=== PATIENT | female | born 1990 | race Two or more races ===

== ENCOUNTER 2017-12-11 05:33 | Day surgery (SDC) | payer OTHER ==
[2017-12-11] MEDS ORDERED: BUPIVACAINE HCL 0.5 % INJ/PF 30 ML SDV ONE (07:11)
[2017-12-11] MEDS ORDERED: CEFAZOLIN 2 GM/D5W RTU 2 GM/50 ML RTUPB IV ONE (07:26)
[2017-12-11] MEDS ORDERED: FENTANYL CITRATE INJ/PF 250 MCG/5 ML AMPULE ONE (07:34)
[2017-12-11] MEDS ORDERED: ONDANSETRON HCL INJ/PF 4 MG/2 ML SDV ONE (07:34)
[2017-12-11] MEDS ORDERED: PROPOFOL INJ 200 MG/20 ML VIAL IV ONE (07:34)
[2017-12-11] MEDS ORDERED: DEXAMETHASONE SOD PHOSPHATE INJ 4 MG/1 ML VIAL ONE (07:34)
[2017-12-11] MEDS ORDERED: ACETAMINOPHEN 1,000 MG/100 ML RTUPB IV ONE (07:34)
[2017-12-11] MEDS ORDERED: HYDROMORPHONE HCL INJ/PF 2 MG/ML AMPULE ONE (07:34)
[2017-12-11] MEDS ORDERED: MIDAZOLAM 2 MG/2 ML INJ ONE (07:34)
[2017-12-11 07:43] LABS: HEMATOCRIT 39.7 % (36.0-47.0); HEMOGLOBIN 13.7 g/dL (12.0-15.5); MEAN CORPUSCULAR HEMOGLOBIN 31.2 pg (27.0-33.4); MEAN CORPUSCULAR HGB CONC 34.4 g/dL (32.0-36.0); MEAN CORPUSCULAR VOLUME 91 fl (80-97); PLATELET COUNT 285 10^3/uL (150-450); RED BLOOD COUNT 4.39 10^6/uL (3.72-5.28); RED CELL DISTRIBUTION WIDTH 12.8 % (11.5-14.0); WHITE BLOOD COUNT 10.1 10^3/uL (4.0-10.5)
[2017-12-11] MEDS ORDERED: SUCCINYLCHOLINE CHLORIDE INJ 200 MG/10 ML VIAL ONE (08:15)
[2017-12-11] MEDS ORDERED: FENTANYL CITRATE INJ/PF 100 MCG/2 ML AMPUL IV PRN ×3 (08:48)
[2017-12-11] MEDS ORDERED: MEPERIDINE HCL/PF INJ 25 MG/1 ML DISP.SYRIN IV PRN (08:48)
[2017-12-11] MEDS ORDERED: PROMETHAZINE HCL INJ 25 MG/1 ML VIAL IV PRN (08:48)
[2017-12-11] MEDS ORDERED: MORPHINE SULFATE 10 MG/ML INJ IV PRN (08:48)
[2017-12-11] MEDS ORDERED: DIPHENHYDRAMINE HCL 50 MG/ML VIAL IV PRN (08:48)
[2017-12-11] MEDS: FENTANYL CITRATE INJ/PF 100 MCG/2 ML AMPUL ONE ×2 (10:25→10:30)
[2017-12-11] MEDS ORDERED: MORPHINE SULFATE 10 MG/ML INJ ONE (10:35)
[2017-12-11] MEDS ORDERED: KETOROLAC TROMETHAMINE INJ/PF 30 MG/1 ML SDV ONE (10:35)
[2017-12-11] MEDS ORDERED: OXYCODONE-ACETAMINOPHEN 5-325 MG TABLET PO PRN (10:57)
[2017-12-11] MEDS ORDERED: LORAZEPAM INJ 2 MG/1 ML VIAL ONE (11:09)
[2017-12-11] MEDS ORDERED: ONDANSETRON HCL 8 MG TABLET PO PRN (11:24)
[2017-12-11] MEDS ORDERED: OXYCODONE-ACETAMINOPHEN 5-325 MG TABLET ONE (11:49)
--- NOTE | 2017-12-11 12:01 | OPERATIVE REPORT E ---
Operative Report NAME: GUILLERMO HSU : 1990 AGE: 27Y DATE OF SURGERY: 12/11/2017 ROOM: PREOPERATIVE DIAGNOSIS: Left wrist distal radioulnar joint instability. POSTOPERATIVE DIAGNOSIS: Left wrist distal radioulnar joint instability. PROCEDURES: 1. Left wrist distal radioulnar joint reconstruction. 2. Palmaris longus tendon graft separate incision. SURGEON: ISABELA COOK M.D. ANESTHESIA: General. BLOOD LOSS: Minimal. COMPLICATIONS: None. 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 Due to this pain, she is dependent on narcotic analgesics. DESCRIPTION OF PROCEDURE: Following the induction of a general anesthetic and administration of antibiotics, the patient was positioned supine on the operating room table. Bony prominences were padded. The tourniquet was placed proximally on the left arm, but not inflated. The left upper extremity was sterilely prepped with Chloraprep and draped in standard fashion. The arm was exsanguinated and tourniquet inflated to 100 mm by systolic pressure. At the beginning of the procedure, we harvested the palmaris longus tendon graft. A transverse incision was made on the volar aspect of the wrist. A sharp incision was performed through skin, blunt dissection for the subcutaneous tissue. The palmaris longus tendon was identified and was transected distally. A tendon harvester was placed over it and the tendon was harvested. When the harvester reached the musculotendinous junction, the tendon graft was then placed on the back table. The wound was irrigated and closed with nylon. An incision was made on the dorsoulnar aspect of the wrist. A sharp incision was performed through skin and blunt dissection through the subcutaneous tissue. The fifth dorsal extension compartment was opened and the EDQ tendon retracted. The DRUJ was opened in an L-shape flap. There was chronic instability of the DRUJ and the distal radial ulnar joint was completely dislocated. Bone holes were drilled using a cannulated 2.7 drill bit in the dorsal ulnar corner of the distal radius as well as through the fovea of the ulna. Both of these holes were opened with a curette. A second counter incision was made on the volar ulnar aspect of the wrist between the ulna neurovascular bundle and the flexor tendons. Tendon graft was placed from volar to dorsal using a Hewson suture passer through the radius. A mosquito clamp was then placed over the TFCC remnants dorsally to volarly and the graft was brought again dorsally so that both ends of the graft were in the dorsal aspect of the wound. Hewson suture passer was once again used as both of these limbs were pulled through the bone tunnel in the distal ulna. It was looped around the distal ulna and sutured together using a 4-0 FiberLoop suture. Due to the severe degree of instability, it was decided to reduce the distal radial ulnar joints and the DRUJ was pinned using a 0.62 Melissa wire from ulnar to radial *------* bicortically just in case of wire breakage. The wounds were irrigated. The arthrotomy in the distal ulnar joint was imbricated with a [id number] fashion using 4-0 FiberLoop. The subcutaneous tissue and skin dorsally were closed with 3-0 Monocryl and Steri-Strips were applied. Volarly, the subcutaneous tissue and skin were closed with 3-0 Monocryl and Steri-Strips were applied as well. In addition, during a dorsal exposure, due to previous trauma, the PIN nerve was identified. Therefore, a PIN neurectomy was performed in order to provide postoperative analgesia in the wrist. A pin ball was placed on the Melissa wire. A 0.25% Marcaine was injected in all wounds for postoperative analgesia. A bulky sterile dressing and long arm splint were applied. The patient tolerated the procedure well without complications and was brought to the recovery room in stable condition. DICTATING PHYSICIAN: ISABELA COOK M.D. [id number] PHY#: [id number] ID: [id number] JOB#: [id number] ACCT: [id number] cc:ISABELA COOK M.D. >
[2017-12-11 13:02] VITALS: BP 140/84
== END 2017-12-11 12:40 | disposition home or self-care (01) ==
LOC: OROUT 05:33
PROVIDERS: ATTEND Orthopaedic Surgery
DX: M25.332 Other instability, left wrist (principal); S63.01 Subluxation and dislocation of distal radioulnar joint; X58.XXXS Exposure to other specified factors, sequela; M24.542 Contracture, left hand; M24.522 Contracture, left elbow; J45.909 Unspecified asthma, uncomplicated; E66.9 Obesity, unspecified; Z79.51 Long term (current) use of inhaled steroids; Z68.41 Body mass index [BMI] 40.0-44.9, adult
CPT/HCPCS: 25337; 20924; 36415; 85027; 81025; C1713 ×3; J2250; J3490; J1100; J3010 ×2; J1885; J2270; J1170; J2060; J0330; J2405; J2704; J0690; J0131; 1810

== ENCOUNTER 2018-08-08 12:38 | Emergency (ER) | payer OTHER ==
[2018-08-08 12:44] VITALS: BP 132/89
--- NOTE | 2018-08-08 13:55 | RADIOLOGY REPORT (SQ) ---
EXAM DESCRIPTION: WRIST LEFT 3 VIEWS COMPLETED DATE/TIME: 08/08/2018 1:36 pm REASON FOR STUDY: injury COMPARISON: None. NUMBER OF VIEWS: Three views. TECHNIQUE: AP, lateral, and oblique radiographic images acquired of the left wrist. LIMITATIONS: None. FINDINGS: MINERALIZATION: Normal. BONES: No acute fracture or dislocation. No worrisome bone lesions. Normal alignment. SOFT TISSUES: No soft tissue swelling. No foreign body. OTHER: Evidence of prior surgery in the distal radius and ulna as well as within the soft tissues. M ultiple clips are in place. IMPRESSION: No acute findings. TECHNICAL DOCUMENTATION: JOB ID: [id number] [employer]- All Rights Reserved Reading location - IP/workstation name: [email or web address]
[2018-08-08] MEDS ORDERED: OXYCODONE-ACETAMINOPHEN 5-325 MG TABLET PO ONE (14:46)
--- NOTE | 2018-08-08 14:52 | ER Document Report ---
HPI - HPI Patient complains to provider of: L wrist injury Time Seen by Provider: 08/08/18 14:31 Pain Level: 5 Context: 20-year-old female with history of severe accident requiring multiple surgeries on her bilateral distal upper extremities presents the emergency department after an injury while at work. 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 She said because of the complications from her previous injury and the surgeries she immediately suffered in severe pain and was unable to move her wrist. She does have a normal distal neurovascular exam, she can move her wrist but is severely limited by pain. She denies any elbow or shoulder pain she denies anything striking her head. No other complaints - CONSTITUTIONAL Constitutional: DENIES: Fever, Chills - EENT EENT: DENIES: Sore Throat, Ear Pain, Eye problems - NEURO Neurology: REPORTS: Headache. DENIES: Weakness, Vision blurred, Dizzinesss / Vertigo - CARDIOVASCULAR Cardiovascular: DENIES: Chest pain - RESPIRATORY Respiratory: DENIES: Trouble Breathing, Coughing - GASTROINTESTINAL Gastrointestinal: DENIES: Abdominal Pain, Black / Bloody Stools - URINARY Urinary: DENIES: Dysuria, Urgency, Frequency - REPRODUCTIVE Reproductive: DENIES: : - MUSCULOSKELETAL Musculoskeletal: REPORTS: Extremity pain Past Medical History - Social History Smoking Status: Current Some Day Smoker Chew tobacco use (# tins/day): No Frequency of alcohol use: Occasional Drug Abuse: None Family History: None Patient has suicidal ideation: No Patient has homicidal ideation: No - Past Medical History Cardiac Medical History: Denies: Hx Coronary Artery Disease, Hx Heart Attack, Hx Hypertension Pulmonary Medical History: Denies: Hx Asthma, Hx Bronchitis, Hx COPD, Hx Pneumonia Neurological Medical History: Denies: Hx Cerebrovascular Accident, Hx Seizures Renal/ Medical History: Denies: Hx Peritoneal Dialysis Musculoskeletal Medical History: Denies Hx Arthritis Past Surgical History: Reports: Hx Section, Hx Orthopedic Surgery - left wrist left elbow, Hx Tubal Ligation - Immunizations Hx Diphtheria, Pertussis, Tetanus Vaccination: Yes Vertical Provider Document - CONSTITUTIONAL Notes: PHYSICAL EXAMINATION: Reviewed vital signs and charting by RN GENERAL: Alert, interacts well. No acute distress. HEAD: Normocephalic, atraumatic. EYES: Pupils equal and round. Extraocular movements intact. ENT: Oral mucosa moist, tongue midline. NECK: Full range of motion. Trachea midline. EXTREMITIES: Moves all 4 extremities spontaneously. Significant scarring on bilateral distal upper extremities from previous injury, acute tenderness to palpation over the entire wrist region, patient does have strength with range of motion to passive, active and to resistance, no obvious edema, no ecchymosis. PSYCH: Normal affect, normal mood. SKIN: Warm, dry, normal turgor. No rashes or lesions noted. - INFECTION CONTROL TRAVEL OUTSIDE OF THE [place] IN LAST 30 DAYS: No Course - Re-evaluation Re-evalutation: 08/08/18 14:49 Patient presents with an acute left wrist injury. X-ray was negative for any acute fracture dislocation, there are surgical changes noted on the x-ray. We will place her in a cock-up splint, I will give her Percocet 10 as she was previously on pain management and is in acute pain at this time. She saw Dr. Whiting for her previous surgery so I will have her follow-up with Dr. Whiting on Saturday. Normal distal neurovascular exam, flexor and extensor tendons intact. Stable for discharge - Vital Signs Vital signs: Temp Pulse Resp BP Pulse Ox 98.4 F 94 22 H 132/89 H 99 08/08/18 12:42 08/08/18 12:42 08/08/18 12:42 08/08/18 12:42 08/08/18 12:42 Discharge - Discharge Clinical Impression: Left wrist injury Qualifiers: Encounter type: initial encounter Qualified Code(s): S69.92XA - Unspecified injury of left wrist, hand and finger(s), initial encounter Condition: Good Disposition: HOME, SELF-CARE Additional Instructions: You were seen in the emergency department this afternoon for a left wrist injury sustained while at work. Your x-ray was negative for any acute fracture or dislocation. You have received 1 dose of pain medication here in the ER home with a short prescription of Percocet. We have placed you in a cock-up splint. Please continue to ice it for 20 minutes at a time every couple of hours. Please follow-up with Dr. Whiting next week. If your fingers start to turn blue or purple, you completely loose sensation in your hand, or unable to use it at all, or you have any other concerning symptoms please immediately return to the emergency department for reevaluation. Forms: Return to Work Referrals: MESFIN EDMONDSON NP [NO LOCAL MD] - Follow up as needed ISABELA WHITING MD [ASSOCIATE] - 08/11/18 8:00 am
== END 2018-08-08 15:12 | disposition home or self-care (01) ==
LOC: ER 12:38
DX: S69.92XA Unspecified injury of left wrist, hand and finger(s), initial encounter (principal); W20.8XXA Other cause of strike by thrown, projected or falling object, initial encounter; Y93.89 Activity, other specified; Y92.89 Other specified places as the place of occurrence of the external cause; Y99.0 Civilian activity done for income or pay; F17.200 Nicotine dependence, unspecified, uncomplicated; Z98.51 Tubal ligation status
CPT/HCPCS: 99283; 73110; L3908

== ENCOUNTER 2018-08-15 11:29 | Emergency (ER) | payer OTHER ==
[2018-08-15] MEDS ORDERED: KETOROLAC TROMETHAMINE 60 MG/2 ML SDV IM ONE (12:57)
--- NOTE | 2018-08-15 13:03 | ER Document Report ---
HPI - HPI Time Seen by Provider: 08/15/18 12:40 Pain Level: 4 Notes: Patient is a 28-year-old female with a history of chronic left wrist pain requiring previous multiple surgeries who presents for reevaluation for her left wrist pain status post injury at work a week ago. Patient was evaluated here in the emergency department at that time and had an unremarkable x-ray and placed in a cock-up wrist splint. Patient states that she has had continued pain and her Worker's Comp. situation has not completely gone through so she has not been able to see her specialist. Patient states that her work told her to go to the hospital or another doctor for now and patient cannot afford to go anywhere else so she came here. No other concerns or complaints. Denies any headache, fever, URI, sore throat, chest pain, palpitations, syncope, cough, shortness of breath, wheeze, dyspnea, abdominal pain, nausea/vomiting/diarrhea, urinary retention, dysuria, hematuria, loss of control of bowel or bladder, numbness/tingling, saddle anesthesia, muscle paralysis, or rash. - ROS Systems Reviewed and Negative: Yes All other systems reviewed and negative - REPRODUCTIVE Reproductive: DENIES: : Past Medical History - Social History Smoking Status: Unknown if Ever Smoked Family History: None - Past Medical History Cardiac Medical History: Denies: Hx Coronary Artery Disease, Hx Heart Attack, Hx Hypertension Pulmonary Medical History: Denies: Hx Asthma, Hx Bronchitis, Hx COPD, Hx Pneumonia Neurological Medical History: Denies: Hx Cerebrovascular Accident, Hx Seizures Renal/ Medical History: Denies: Hx Peritoneal Dialysis Musculoskeletal Medical History: Denies Hx Arthritis Past Surgical History: Reports: Hx Section, Hx Orthopedic Surgery - left wrist left elbow, Hx Tubal Ligation - Immunizations Hx Diphtheria, Pertussis, Tetanus Vaccination: Yes Vertical Provider Document - CONSTITUTIONAL Agree With Documented VS: Yes Notes: PHYSICAL EXAMINATION: GENERAL: Well-appearing, well-nourished and in no acute distress. HEAD: Atraumatic, normocephalic. NECK: Normal range of motion, supple without lymphadenopathy. No midline tenderness. LUNGS: Breath sounds clear to auscultation bilaterally and equal. No wheezes rales or rhonchi. HEART: Regular rate and rhythm without murmurs, rubs, gallops. Musculoskeletal: Rt hand/wrist: + old skin grafting site noted with surgical sc ars. No swelling noted to the wrist/hand. + mild tenderness dorsal hand/wrist. N/V intact distal. LROM to passive/active at the wrist, chronic. Strength 4+/5, chronic. No scaphoid tenderness. Extremities: No cyanosis, clubbing, or edema b/l. Peripheral pulses 2+. Capillary refill less than 3 seconds. NEUROLOGICAL: Normal speech, normal gait. Normal sensory, motor exams otherwise unremarkable PSYCH: Normal mood, normal affect. SKIN: see above. No rash - INFECTION CONTROL TRAVEL OUTSIDE OF THE [place] IN LAST 30 DAYS: No Course - Re-evaluation Re-evalutation: 08/15/18 13:02 Patient is an afebrile, well-hydrated, 28-year-old female who presents to the ED with left wrist pain. Vitals are acceptable without any significant tachycardia, tachypnea, or hypoxia. PE is otherwise unremarkable for any neurovascular compromise, obvious tendon/ligament rupture, obvious fracture/di slocation, septic joint. Recent X-ray was unremarkable for any acute pathology. Pt already has a cock-up splint. Toradol given IM. Patient is nontoxic- appearing. No other labs or imaging warranted at this time based on H&P. We had our worker's comp contact come discuss with her. Conservative measures otherwise for symptoms. Recheck with your PCM in 3-5 days. Schedule consult orthopedics. Return to the ED with any worsening/concerning symptoms otherwise as reviewed in discharge. Patient is in agreement. - Vital Signs Vital signs: Temp Pulse Resp BP Pulse Ox 98.1 F 55 L 18 133/72 H 98 08/15/18 11:48 08/15/18 11:48 08/15/18 11:48 08/15/18 11:48 08/15/18 11:48 Discharge - Discharge Clinical Impression: Left wrist pain Condition: Stable Disposition: HOME, SELF-CARE Additional Instructions: Rest, Ice, Compression, Elevation Tylenol/ibuprofen as needed Light stretches daily Strength exercises as able Moist heat and massage may help F/u with your PCP in 3-5 days for a recheck Schedule appointment with orthopedics for further evaluation and management Return to the ED with any worsening symptoms and/or development of fever, headache, chest pain, palpitations, syncope, shortness of breath, trouble breathing, abdominal pain, n/v/d, muscle weakness/paralysis, numbness/tingling, swelling, redness, or other worsening symptoms that are concerning to you. Prescriptions: Diclofenac Sodium [Voltaren] 4 gm TP QID PRN #100 gel..gm. PRN Reason: Forms: Elevated Blood Pressure, Return to Work Referrals: MATTHEW KEENE, [ACTIVE STAFF] - Follow up as needed
[2018-08-15 13:42] VITALS: BP 134/75
== END 2018-08-15 13:42 | disposition home or self-care (01) ==
LOC: ER 11:29
DX: M25.532 Pain in left wrist (principal); Z98.890 Other specified postprocedural states
CPT/HCPCS: 99283; 96372; J1885